=== PATIENT | female | born 1990 | race Caucasian/White ===

== ENCOUNTER → 2017-03-01 | Outpatient (CLI) | payer OTHER ==
--- NOTE | 2017-03-01 12:26 | PCVCIMAG ---
APPROVED REPORT Study performed: 03/01/2017 10:28:55 EXAM: Comprehensive 2D, Doppler, and color-flow Echocardiogram Status: routine Other Information Study Quality: Adequate Indications PALPITATIONS. Thyroid Disease. 2D Dimensions LVEF(%): 52.78 (>50%) IVSd: 12.02 (7-11mm)LVOT Diam: 18.78 (18-24mm) LVDd: 41.67 mm LVPWs: 27.23 mm PWd: 9.24 (7-11mm)Ascending Ao: 31.77 (22-36mm) LVDs: 30.49 (25-40mm) Left Atrium: 42.56 (27-40mm) LV Single Plane 4CH: 55.25 % Jarrett's LVEF: 52.78 % Volumes Left Atrial Volume (Systole) Single Plane 4CH: 44.62 mLSingle Plane 2CH: 42.13 mL Aortic Valve AoV Peak Godfrey.: 1.17 m/s AO Peak Gr.: 5.49 mmHgLVOT Max P.03 mmHg LVOT Max V: 0.71 m/s FRANCOISE Vmax: 1.68 cm2 Mitral Valve E/A Ratio: 1.2 MV Decel. Time: 192.70 ms MV E Max Godfrey.: 0.72 m/s MV A Godrfey.: 0.62 m/s IVRT: 100.35 ms Pulmonary Valve PV Peak Gr.: 3.53 mmHg Pulmonary Vein P Vein S: 0.59 m/sP Vein A: 0.25 m/s P Vein D: 0.48 m/sP Vein A Dur.: 58.8 msec P Vein S/D Ratio: 1.23 Left Ventricle The left ventricle is normal size. There is normal LV segmental wall motion. There is normal left ventricular wall thickness. Left ventricular systolic function is normal. The left ventricular ejection fraction is within the normal range. LVEF is 65%. The left ventricular diastolic function is normal. Right Ventricle The right ventricle is normal size. The right ventricular systolic function is normal. Atria The left atrium size is normal. The right atrium size is normal. Aortic Valve The aortic valve is normal in structure. No aortic regurgitation is present. There is no aortic valvular stenosis. Mitral Valve The mitral valve is normal in structure. There is no mitral valve regurgitation noted. No evidence of mitral valve stenosis. Tricuspid Valve The tricuspid valve is normal in structure. There is no tricuspid valve regurgitation noted. Pulmonic Valve The pulmonary valve is normal in structure. There is no pulmonic valvular regurgitation. Great Vessels The aortic root is normal in size. IVC is normal in size and collapses with >50% inspiration Pericardium There is no pericardial effusion. <Conclusion> The left ventricle is normal size. LVEF is 65%. The aortic valve is normal in structure. The mitral valve is normal in structure. The tricuspid valve is normal in structure. The pulmonary valve is normal in structure.
== END | disposition home or self-care (01) ==
LOC: PCVCIMAG 10:21
PROVIDERS: ATTEND Internal Medicine
DX: E78.5 Hyperlipidemia, unspecified (principal); E06.3 Autoimmune thyroiditis; E03.9 Hypothyroidism, unspecified
CPT/HCPCS: 93306